=== PATIENT | female | born 1980 | race Caucasian/White ===

== ENCOUNTER → 2018-05-12 | Outpatient (CLI) | payer OTHER | LOC: FIMAGING 16:25 | PROVIDERS: ATTEND Orthopaedic Surgery Sports Medicine | DX: M79.661 Pain in right lower leg (principal) ==

== ENCOUNTER 2018-06-06 13:48 | Emergency (ER) | payer OTHER ==
[2018-06-06 14:15] LABS: PLATELET COUNT 185 10^3/uL (150-400)
[2018-06-06] MEDS ORDERED: ONDANSETRON 4 MG/2 ML VIAL IVP ONE (14:32)
[2018-06-06] MEDS ORDERED: HYDROmorphONE/DILAUDID 2 MG/ML INJ IVP ONE (14:32)
--- NOTE | 2018-06-06 14:37 | EDPHY ---
H & P Stated Complaint: chest heaviness Time Seen by Provider: 06/06/18 13:50 HPI/ROS: CHIEF COMPLAINT: Chest pain HISTORY OF PRESENT ILLNESS: This is a 37-year-old female in general good health who presents with mid substernal chest pain that she describes as "heaviness". She underwent a labral repair of her left shoulder by Dr. Wright this past Wednesday, today is postoperative day 3. Her chest pain started yesterday and has persisted. She occasionally feels that in the left breast also. There is no radiation into the arm or change in her shoulder discomfort. In addition she has had vomiting for the last 2 days. Initially this was thought to be due to her pain medication. She has been taking oxycodone 2 pills every 4-5 hours and was advised to dropped down to 1 pill every 4-5 hours. However, she notes that she has not had vomiting at night even though she continues to take her pain medicine throughout the night. She denies abdominal pain. No urinary symptoms. No calf swelling or tenderness. No family history of VTE. REVIEW OF SYSTEMS: A ten system review of systems was performed and is negative with the exception of the items mentioned in the HPI. Past medical history: Migraine headaches Past surgical history: Left labral repair May of 2018 Social history: She lives with her and 2 children. She does not use tobacco products or alcohol. 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 General Appearance: Alert. Vital signs reviewed. Blood pressure 136/89. Afebrile. Eyes: Pupils equal and round, no conjunctival injection, no discharge. Anicteric. ENT, Mouth: Mucous membranes are moist, no oropharyngeal erythema or edema. Neck: No lymphadenopathy, supple. Respiratory: Lungs are clear to auscultation; no wheezes, rales, or rhonchi. Cardiovascular: Regular rate and rhythm; no murmur, rub, or gallop. Gastrointestinal: Abdomen is soft and nontender, no masses or organomegaly, bowel sounds normal. Skin: Warm and dry, no rashes on exposed skin, normal color. Back: Nontender to palpation over the thoracolumbar spine. No CVAT. Extremities: No lower extremity edema, no calf tenderness or swelling. Surgical dressing in place over the left shoulder and sling in place. Pulses: 2+ left radial pulse and 2+ bilateral dorsalis pedis pulses. Neurological: Alert and oriented. Moving all four extremities easily and equally. Psychiatric: Normal affect. - Personal History LMP (Females 10-55): 15-21 Days Ago Current Tetanus/Diphtheria Vaccine: Yes Current Tetanus Diphtheria and Acellular Pertussis (TDAP): Yes - Medical/Surgical History Hx Asthma: No Hx Chronic Respiratory Disease: No Hx Diabetes: No Hx Cardiac Disease: No Hx Renal Disease: No Hx Cirrhosis: No Hx Alcoholism: No Hx HIV/AIDS: No Hx Splenectomy or Spleen Trauma: No Other PMH: l shoulder surgery, 2x vaginal - Social History Smoking Status: Never smoked Constitutional: Initial Vital Signs Temperature (C) 37.2 C 06/06/18 13:48 Heart Rate 67 06/06/18 13:48 Respiratory Rate 14 06/06/18 13:48 Blood Pressure 136/89 H 06/06/18 13:48 O2 Sat (%) 99 06/06/18 13:48 O2 Delivery Mode Room Air O2 (L/minute) 2 Allergies/Adverse Reactions: No Known Allergies Allergy (Unverified 06/06/18 14:04) Home Medications: Medication Instructions Recorded Naproxen 06/06/18 Ondansetron Odt [Zofran Odt 4 mg 4 mg PO Q4 PRN #15 tab 06/06/18 (RX)] Oxycontin 06/06/18 Zofran 06/06/18 Medical Decision Making - Diagnostics EKG Interpretation: 12 lead EKG is interpreted in [place] by emergency department physician. Sinus rhythm with a rate of 67. Normal axis and intervals. No ischemic changes. ED Course/Re-evaluation: 37-year-old female postop day 3 status post labral repair, left shoulder. She presents with substernal chest pain and left breast pain. She describes this as a heaviness. She does not feel short of breath. The pain is not pleuritic. However she has been immobilized since her shoulder surgery. Her D-dimer slightly elevated at 0.66. We discussed this finding. She would like to avoid CT angiogram of the chest and subsequent radiation. I feel that starting with bilateral lower extremity ultrasounds is a reasonable approach in this setting. No family history of VTE. Bilateral ultrasounds of her legs are negative for BT. I reviewed this finding with the patient and her . They understand that this is not the definitive test for PE. She received IV Dilaudid in the emergency department at at the time of my re-evaluation her pain is gone--both her postoperative shoulder pain and her chest pain. She is resting comfortably. I have reviewed her EKG. There is no sign of acute ischemia. Her troponin is normal. I think that an acute coronary syndrome was quite unlikely. She has no family history of early heart disease or sudden cardiac . I spoke with Dr. Flex Wright's fellow on the telephone. She is comfortable with the evaluation that I have done. The patient has follow-up scheduled. I reviewed the danger signs with the patient and her . Differential Diagnosis: Chest pain including but not limited to postoperative pain secondary to positioning, myocardial ischemia, pulmonary embolus, chest wall pain, pleural inflammation and pulmonary infectious causes. - Data Points Laboratory Results: Laboratory Results 06/06/18 13:48 06/06/18 13:48 Medications Given: Discontinued Medications Hydromorphone HCl (Dilaudid) 0.5 mg IVP EDNOW ONE Stop: 06/06/18 14:33 Last Admin: 06/06/18 14:42 Dose: 0.5 mg Ondansetron HCl (Zofran) 4 mg IVP EDNOW ONE Stop: 06/06/18 14:33 Last Admin: 06/06/18 14:41 Dose: 4 mg Point of Care Test Results: Chemistry 06/06/18 14:11 POC Troponin I 0.01 ng/mL ng/mL (0.00-0.08) Departure - Departure Disposition: Home, Routine, Self-Care Clinical Impression: Chest pain, musculoskeletal Condition: Good Instructions: Chest Pain (ED) Additional Instructions: As we discussed, I do not know for sure what is causing your chest pain. I have not found evidence of a serious or life-threatening problem such as pneumonia, collapsed lung, or a blood clot in your lungs. As we also discussed , we did not do the definitive test for a blood clot in your lungs, which would be a CT angiogram of your chest. The ultrasound studies of your legs did not show any blood clots. Your chest x-ray looks normal. Your EKG does not show evidence of a heart attack or a blood clot. If you develop worsening chest pain, shortness of breath, feel as if you might faint, have fever or cough--you should be re-evaluated immediately. Try the Zofran oral dissolving tablets. These dissolve under your tongue. You can use 1 every 4 hr. This might work better for you than the pills that you swallow. Continue with your oxycodone for pain. He received a dose of pain medication in the emergency department at 2:40 p.m.. You can take her next dose of pain medicine at home at approximately 6:40 p.m.. Start a bowel program using the stool softener that you have. Referrals: Loyda Meng, SENIOR CONSULTING MANAGER [Primary Care Provider] - As per Instructions Prescriptions: Ondansetron Odt [Zofran Odt 4 mg (RX)] 4 mg PO Q4 PRN #15 tab PRN Reason: nausea
--- NOTE | 2018-06-06 15:52 | CPEKG ---
Test Reason : OPEN Blood Pressure : / mmHG Vent. Rate : 067 BPM Atrial Rate : 066 BPM P-R Int : 151 ms QRS Dur : 080 ms QT Int : 379 ms P-R-T Axes : 067 069 036 degrees QTc Int : 400 ms Sinus rhythm Left atrial enlargement Baseline artifact Confirmed by Carlota Zepeda ([id number]) on 06/06/2018 3:52:04 PM Referred By: Carlota Zepeda Confirmed By:Carlota Zepeda
[2018-06-06 16:29] VITALS: BP 120/74
== END 2018-06-06 16:34 | disposition home or self-care (01) ==
LOC: EDUNIT#
DX: R07.89 Other chest pain (principal); Z98.890 Other specified postprocedural states; Z79.891 Long term (current) use of opiate analgesic
CPT/HCPCS: 84484-ER; 96374; J1170; J2405